=== PATIENT | female | born 1990 | race African-American/Black ===

== ENCOUNTER 2017-11-13 08:29 | Emergency (ER) | payer MEDICAID ==
[~2017-11-13] VITALS: Ht 167.6 cm; Wt 72.0 kg
[~2017-11-13 08:29] MED LIST: PHEN100C4 PO
[2017-11-13 08:30] VITALS: BP 128/68
== END 2017-11-13 09:08 | disposition left against medical advice (07) ==
LOC: ER 08:29
DX: R56.9 Unspecified convulsions (principal); Z53.21 Procedure and treatment not carried out due to patient leaving prior to being seen by health care provider

== ENCOUNTER 2023-03-12 23:56 | Emergency (ER) | payer MEDICAID ==
[~2023-03-12] VITALS: Ht 177.8 cm; Wt 91.0 kg
[2023-03-13] VITALS: O2SAT 97
[2023-03-13] MEDS ORDERED: MORPHINE SULFATE 4 MG/ML CPJ (NOT FOR IM USE) IV NR (00:30)
[2023-03-13 01:18] LABS: BASOPHILS % 0.5 % (0.0-2.0); EOSINOPHILS % 1.3 % (0.0-5.0); HEMATOCRIT. 35.4 % (36.0-48.0); HEMOGLOBIN. 11.4 g/dL (12.0-16.0); LYMPHOCYTES % 17.8 % (20.0-50.0); MEAN CORPUSCULAR HEMOGLOBIN 25.7 pg (28.0-32.0); MEAN CORPUSCULAR VOLUME 79.5 fL (81.0-99.0); MEAN PLATELET VOLUME 9.7 fl (7.4-10.4); MONOCYTES % 8.9 % (2.0-8.0); NEUTROPHILS % 71.5 % (40.0-76.0); PLATELET 238 x1000/uL (130-400); RED BLOOD CELL COUNT 4.45 mill/uL (4.2-5.4); RED CELL DISTRIBUTION WIDTH 16.8 % (11.6-14.6)
[2023-03-13 01:24] LABS: CHLORIDE 104 mEq/L (98-107)
[2023-03-13 01:37] LABS: HCG SCREEN NEGATIVE
[2023-03-13] MEDS ORDERED: MORPHINE SULFATE 4 MG/ML CPJ (NOT FOR IM USE) IV ONE (04:00)
[2023-03-13] MEDS ORDERED: IOHEXOL-350 100 ML BOTTLE ONE (06:14)
[2023-03-13] MEDS ORDERED: KETOROLAC 15MG/ML VIAL IV ONE (07:45)
[2023-03-13 08:59] VITALS: BP 124/70; PULSE 90; RESP 17; TEMP 98
== END 2023-03-13 09:08 | disposition home or self-care (01) ==
LOC: ER 23:56
DX: R07.89 Other chest pain (principal)
CPT/HCPCS: 99285; 80053; 84703; 85025; 85379; 84484; 36415; 71045; 71275; 70498; 93005; 96361; 96374; 96376; Q9967; J1885; J2270; Z7610 ×2

== ENCOUNTER 2024-02-03 10:26 | Emergency (ER) | payer MEDICAID ==
[~2024-02-03] VITALS: Ht 175.3 cm; Wt 118.0 kg
[2024-02-03 10:36] VITALS: O2SAT 100
[2024-02-03] MEDS: LEVETIRACETAM 1000MG PREMIX 100 ML IV ONE (11:26)
[2024-02-03 12:13] LABS: BASOPHILS % 0.3 % (0.0-2.0); DIFFERENTIAL COMMENT 0; HEMATOCRIT. 36.5 % (36.0-48.0); HEMOGLOBIN. 11.5 g/dL (12.0-16.0); MEAN CORPUSCULAR HEMOGLOBIN 22.8 pg (28.0-32.0); MEAN CORPUSCULAR HGB CONC 31.5 g/dL (31.0-37.0); MEAN CORPUSCULAR VOLUME 72.6 fL (81.0-99.0); MEAN PLATELET VOLUME 9.8 fl (7.4-10.4); MONOCYTES % 4.5 % (2.0-8.0); NEUTROPHILS % 79.2 % (40.0-76.0); PLATELET 269 x1000/uL (130-400); RED BLOOD CELL COUNT 5.03 mill/uL (4.2-5.4); RED CELL DISTRIBUTION WIDTH 18.6 % (11.6-14.6); WHITE BLOOD COUNT 8.3 x1000/uL (4.5-11.0)
[2024-02-03 12:18] LABS: CHLORIDE 108 mEq/L (98-107); POTASSIUM 3.5 mEq/L (3.5-5.1); SODIUM 139 mEq/L (136-145)
[2024-02-03 12:19] LABS: CALCIUM 9.8 mg/dL (8.7-10.4); CARBON DIOXIDE 25 mEq/L (21-32)
[2024-02-03 12:24] LABS: CREATININE 0.7 mg/dL (0.6-1.0); GLUCOSE 84 mg/dL (70-105); UREA NITROGEN BLOOD 11 mg/dL (9-23)
[2024-02-03 12:33] LABS: HCG SCREEN NEGATIVE
[2024-02-03 12:42] LABS: CARBAMAZEPINE < 0.4 ug/mL (4-12); ETHANOL BLOOD < 10 mg/dL (<10); PHENYTOIN < 2.0 ug/mL (10-20); VALPROIC ACID < 3.0 ug/mL (50-100)
[2024-02-03 13:40] VITALS: BP 135/68; PULSE 60; RESP 15; TEMP 98.8
[2024-02-03] MEDS ORDERED: PHEN300C6 MT (13:42)
== END 2024-02-03 13:51 | disposition home or self-care (01) ==
LOC: ER 10:26
DX: G40.909 Epilepsy, unspecified, not intractable, without status epilepticus (principal)
CPT/HCPCS: 80048; 80320; 80156; 80185; 84703; 80165; 85025; 36415; 96365; 99284; J1953; Z7610; G0480